=== PATIENT | female | born 1970 | race Caucasian/White ===

== ENCOUNTER → 2016-08-19 | Outpatient (CLI) | payer OTHER | LOC: FIMAGING 13:36 | PROVIDERS: ATTEND Obstetrics & Gynecology | DX: Z12.31 Encounter for screening mammogram for malignant neoplasm of breast (principal) | CPT/HCPCS: G0202 ==

== ENCOUNTER → 2016-09-01 | Outpatient (CLI) | payer OTHER | LOC: FIMAGING 08:59 | PROVIDERS: ATTEND Obstetrics & Gynecology | DX: Z12.39 Encounter for other screening for malignant neoplasm of breast (principal); R92.0 Mammographic microcalcification found on diagnostic imaging of breast | CPT/HCPCS: G0206 ==

== ENCOUNTER 2017-04-25 08:49 | Emergency (ER) | payer OTHER ==
[2017-04-25 08:57] VITALS: PULSE 66; TEMP 98.1; O2SAT 96
[2017-04-25] MEDS ORDERED: TDAP ADULT 0.5 ML INJ (BOOSTRIX) IM ONE (09:06)
--- NOTE | 2017-04-25 09:06 | EDPHY ---
H & P Smoking Status: Never smoked Time Seen by Provider: 04/25/17 08:57 HPI/ROS: CHIEF COMPLAINT: Dog bite left hand left forearm HISTORY OF PRESENT ILLNESS: 46-year-old female with out-of-date tetanus, otherwise healthy, sustained dog bite to her left hand left forearm this morning from her own dog. Describes that her dog was injured and as she was helping her dog bit her "clamped down" on her left forearm and left hand. She is complaining of underlying osseous discomfort to these areas. No paresthesia. Dog has up to date vaccinations. PHYSICAL EXAM (Prior to examination, patient consented to physical exam, hands were washed and my usual and customary physical exam procedures followed) 1) GENERAL: Well-developed, well-nourished, alert and oriented. Appears to be in no acute distress. 2) HEAD: Normocephalic 3) HEENT: sclera anicteric 4) LUNGS: Breathing comfortably. 5) SKIN: Puncture wound to the left 1st metacarpal with underlying osseous discomfort, puncture wound to the webspace to the 1st and 2nd digit, puncture wound to the left thenar eminence. Puncture wound to the mid shaft radius with underlying osseous discomfort. 6) MUSCULOSKELETAL: Tender to palpation left 1st metacarpal, tender to palpation mid shaft radius . Soft compartments 7) NEUROLOGIC: Radial ulnar median nerve function intact distally. (Mark Westbrook Vani) Constitutional: Initial Vital Signs Temperature (C) 36.7 C 04/25/17 08:54 Heart Rate 66 04/25/17 08:54 Respiratory Rate 18 04/25/17 08:54 Blood Pressure 114/76 04/25/17 08:54 O2 Sat (%) 96 04/25/17 08:54 O2 Delivery Mode Room Air Allergies/Adverse Reactions: bacitracin [From Neosporin] Allergy (Mild, Verified 01/11/14 09:35) Rash bacitracin zinc [From Neosporin] Allergy (Mild, Unverified 01/11/14 09:34) Rash gramicidin D [From Neosporin] Allergy (Mild, Verified 01/11/14 09:35) Rash latex [Latex] Allergy (Mild, Verified 01/11/14 09:35) Rash neomycin sulfate [From Neosporin] Allergy (Mild, Verified 01/11/14 09:35) Rash Penicillins Allergy (Mild, Verified 01/11/14 09:35) Rash polymyxin B [From Neosporin] Allergy (Mild, Verified 01/11/14 09:35) Rash polymyxin B sulfate [From Neosporin] Allergy (Mild, Verified 01/11/14 09:35) Rash phenobarbital Allergy (Unknown, Verified 01/11/14 09:35) A CHILD Home Medications: Medication Instructions Recorded Levothyroxine [Synthroid 75 mcg 75 mcg PO DAILY06 10/14/12 (RX)] Folic Acid 0.8 mg PO DAILY 12/11/12 [place]-3 Fatty Acids/Fish Oil [Fish 1 cap PO DAILY 12/11/12 Oil 1,000 mg Capsule] Doxycycline Hyclate 100 mg PO BID #14 tablet 04/25/17 Lexapro 04/25/17 Spironolactone 04/25/17 MDM/Departure - MDM Imaging Results: Imaging Impressions Forearm X-Ray 04/25/17 09:14 Impression: Puncture wound over the thenar eminence, with no acute osseous abnormality or radiopaque foreign body. Left Forearm (AP and Lateral Views, at 9:29 AM): There appears to be some mild soft tissue swelling over the mid forearm, but no radiopaque foreign body. There is no fracture, dislocation, or elbow joint effusion. Impression: No acute osseous abnormality. Hand X-Ray 04/25/17 09:14 Impression: Puncture wound over the thenar eminence, with no acute osseous abnormality or radiopaque foreign body. Left Forearm (AP and Lateral Views, at 9:29 AM): There appears to be some mild soft tissue swelling over the mid forearm, but no radiopaque foreign body. There is no fracture, dislocation, or elbow joint effusion. Impression: No acute osseous abnormality. Images reviewed by myself (Mark Westbrook) Procedures: Procedure: Wound management Indication: Irrigation of wounds 1% lidocaine without epinephrine was instilled into the patient's puncture wounds to ease the burden of wound irrigation. Patient tolerated procedure well. Procedure: Splint A Velcro thumb spica splint was applied by ER cooling tower technician for symptomatic relief and immobilization of this area. After application of the splint I returned and re-examined the patient. The splint was adequately immobilizing the joint and distal to the splint the patient's circulation and sensation were intact. Patient shows no signs of compartment syndrome. Was given orthopedic precautions. (Mark Westbrook) Medications Given: Discontinued Medications Diphtheria/Tetanus/Acell Pertussis (Boostrix) 0.5 ml IM .ONCE ONE Stop: 04/25/17 09:07 Last Admin: 04/25/17 09:15 Dose: 0.5 ml ED Course/Re-evaluation: Patient's wounds have been copiously irrigated. They will be allowed to heal via secondary intention. Started on prophylactic antibiotics. Care of patient under supervision of primary supervising physician Dr Joaquin. . (Mark Westbrook ) PHYSICIAN DOCUMENTATION: The patient was evaluated and managed by the [employer]ician [employer] Project Engineer. My co- signature indicates that I have reviewed this chart and I agree with the findings and plan of care as documented. I am the secondary supervising physician. (Romain Joaquin) - Depart Clinical Impression: Dog bite of left hand Instructions: Doxycycline (By mouth), Animal Bite (ED) Additional Instructions: Return to the ER if you develop redness, swelling, discharge, warmth to the wound, red streaks going up your arm, or any other symptoms that concern you. Prescriptions: Doxycycline Hyclate 100 mg PO BID #14 tablet Referrals: Matthew Caruso MD [Medical Doctor] - 1-2 days without fail
[2017-04-25 10:14] VITALS: BP 113/70; RESP 16
== END 2017-04-25 10:13 | disposition home or self-care (01) ==
DX: S61.452A Open bite of left hand, initial encounter (principal); Z23 Encounter for immunization; Z91.040 Latex allergy status; W54.0XXA Bitten by dog, initial encounter
CPT/HCPCS: L3807

== ENCOUNTER → 2017-09-07 | Outpatient (CLI) | payer OTHER | LOC: FIMAGING 11:02 | PROVIDERS: ATTEND Nurse Practitioner Women's Health | DX: Z12.31 Encounter for screening mammogram for malignant neoplasm of breast (principal); Z80.3 Family history of malignant neoplasm of breast ==